=== PATIENT | female | born 1975 | race Caucasian/White ===

== ENCOUNTER 2017-12-23 16:48 | Emergency (ER) | payer BC, OTHER ==
[2017-12-23 17:46] VITALS: BP 155/87
--- NOTE | 2017-12-23 18:18 | UC ---
Lower Extremity/Ankle HPI - HPI Summary HPI Summary: Patient urgent care with chief complaint of left lateral foot pain after tripping and falling in the parking lot at the supermarket yesterday. Patient is able to weight-bear with pain - History of Current Complaint Chief Complaint: UCLowerExtremity Stated Complaint: SP FALL/LT FOOT INJURY Time Seen by Provider: 12/23/17 17:49 Hx Obtained From: Patient Hx Last Menstrual Period: 11/24/17 ?: No Onset/Duration: Sudden Onset Pain Intensity: 8 Pain Scale Used: 0-10 Numeric Aggravating Factor(s): Standing, Ambulation Alleviating Factor(s): Rest, Elevation Able to Bear Weight: Yes - Allergies/Home Medications Allergies/Adverse Reactions: Allergies Allergy/AdvReac Type Severity Reaction Status Date / Time No Known Allergies Allergy Verified 12/23/17 17:44 Home Medications: Home Medications Acetaminophen [Tylophen] 1,000 mg PO Q8H 12/23/17 [History Confirmed 12/23/17] Metformin ER (NF) 1,000 mg PO BID 12/23/17 [History Confirmed 12/23/17] Omeprazole CAP* [Prilosec CAP* 20 MG] 20 mg PO DAILY 12/23/17 [History Confirmed 12/23/17] Venlafaxine CAP (NF) [Effexor CAP (NF)] 75 mg PO DAILY 12/23/17 [History Confirmed 12/23/17] PMH/Surg Hx/FS Hx/Imm Hx Previously Healthy: No Endocrine History: Diabetes GI/ History: Gastroesophageal Reflux Psychological History: Depression - Surgical History Surgical History: Yes Surgery Procedure, Year, and Place: X2 - Family History Known Family History: Positive: None - Social History Occupation: Employed Full-time Lives: With Family Alcohol Use: Occasionally Substance Use Type: None Smoking Status (MU): Never Smoked Tobacco Review of Systems Constitutional: Negative Skin: Negative Eyes: Negative ENT: Negative Respiratory: Negative Cardiovascular: Negative Gastrointestinal: Negative Genitourinary: Negative Motor: Negative Neurovascular: Negative Musculoskeletal: Arthralgia - Left fourth and fifth metatarsal discomfort with palpation Neurological: Negative Psychological: Negative Is Patient Immunocompromised?: No All Other Systems Reviewed And Are Negative: Yes Physical Exam Triage Information Reviewed: Yes Appearance: Well-Appearing, Pain Distress - mild, Obese Vital Signs: Initial Vital Signs Temp 98.2 F 12/23/17 17:40 Pulse 98 12/23/17 17:40 Resp 16 12/23/17 17:40 BP 155/87 12/23/17 17:40 Pulse Ox 98 12/23/17 17:40 Vital Signs Reviewed: Yes Eye Exam: Normal Eyes: Positive: Conjunctiva Clear ENT Exam: Normal ENT: Positive: Normal ENT inspection, Hearing grossly normal. Negative: Trismus , Muffled voice, Hoarse voice, Dental tenderness Dental Exam: Normal Neck exam: Normal Neck: Positive: Supple, Nontender Respiratory Exam: Normal Respiratory: Positive: Chest non-tender, No respiratory distress, No accessory muscle use Cardiovascular Exam: Normal Cardiovascular: Positive: RRR, Pulses Normal, Brisk Capillary Refill Musculoskeletal Exam: Normal Neurological Exam: Normal Neurological: Positive: Alert, Muscle Tone Normal Psychological Exam: Normal Skin Exam: Normal Diagnostics - Radiology No standard instances Xray Interpretation: No Acute Changes - Patient Name: CORAL WYLIE Medical Record# : [id number] Ordering Physician: Sheela Owens [employer] Acct.#: [id number] : 1975 Age: 42 Sex: F Location: [facility]ARE [facility] Exam Date: 12/23/171752 ADM Status: REG ER Order Information: FOOT LEFT 3+ VWS Accession Number: [id number] CPT: 54079 INDICATION: Fifth metatarsal pain COMPARISON: None TECHNIQUE: AP, lateral, and oblique views were obtained. FINDINGS: There is no acute fracture. There are mild irregularities about the dorsal aspect of the tarsal navicular which are likely related to prior degenerative and/or post medic change. There are small ossific densities about the cuboid which are rounded and corticated. There is a moderate-sized plantar calcaneal spur. IMPRESSION: NO ACUTE FRACTURE. _ <Electronically signed by Adithya Mcfarland MD in OV> 12/23/171814 Dictated By: Adithya Mcfarland MD Dictated Date/Time: 12/23/171814 Transcribed Date/Time : 12/23/171813 Copy to: CC:Sheela Owens [employer]; David Mckeon MD; Faith Branch MD Imaging - [facility] Imaging - [facility] Imaging - [facility] [address] [address] ph [phone] ph [phone] ph ([phone]) 1 of 1 Radiology Interpretation Completed By: ED Physician, Radiologist Lower Extremity Course/Dx - Course Course Of Treatment: Cam boot left foot. Weightbearing as tolerated Tylenol or ibuprofen for pain rest ice and elevation follow with PCP or orthopedic M.D. as needed - Differential Dx/Diagnosis Provider Diagnoses: Left foot sprain, elevated blood pressure without diagnosis of hypertension Discharge - Sign-Out/Discharge Documenting (check all that apply): Discharge/Admit/Transfer - Discharge Plan Condition: Stable Disposition: HOME Patient Education Materials: Foot Sprain (ED), Hypertension (ED), R.I.C.E. Treatment (ED) Referrals: Thang Duvall MD [Medical Doctor] - (if needed should foot pain continue for > 1 week) Faith Branch MD [Primary Care Provider] - 2 Weeks (for BP recheck) - Billing Disposition and Condition Condition: STABLE Disposition: Home
== END 2017-12-23 18:42 | disposition home or self-care (01) ==
LOC: UCCORT 16:48
DX: S93.602A Unspecified sprain of left foot, initial encounter (principal); W01.0XXA Fall on same level from slipping, tripping and stumbling without subsequent striking against object, initial encounter; Y93.01 Activity, walking, marching and hiking; Y92.481 Parking lot as the place of occurrence of the external cause; E11.9 Type 2 diabetes mellitus without complications; Z79.84 Long term (current) use of oral hypoglycemic drugs; K21.9 Gastro-esophageal reflux disease without esophagitis; F32.9 Major depressive disorder, single episode, unspecified
CPT/HCPCS: 99202; G0463

== ENCOUNTER 2019-01-11 11:54 | Inpatient (IN) | payer OTHER ==
[~2019-01-11 11:54] MED LIST: Buffered Lidocaine 1% SYRIN* 1 ML/SYRINGE INTRADERM ONE; Lactated Ringers 1000 ML Bag* 1,000 ML IV SCH
[2019-01-11] MEDS ORDERED: ceFAZolin 1 GM ADVAN(*) 1 GM ADDV.VIAL IVPB ONE (12:24)
[2019-01-11] MEDS ORDERED: Heparin VIAL(*) 5000 UNITS/ML VIAL (FIVE THOUSAND) ONE (12:24)
[2019-01-11] MEDS ORDERED: Buffered Lidocaine 1% SYRIN* 1 ML/SYRINGE INTRADERM ONE (12:24)
[2019-01-11] MEDS ORDERED: ceFAZolin 2 GM in NS PREMIX(*) 2 GM/100 ML BAG IVPB ONE (12:24)
[2019-01-11] MEDS ORDERED: Bupivacaine 0.25% EPI 200,000* 30 ML SDV ONE (13:08)
[2019-01-11] MEDS ORDERED: fentaNYL* 50 MCG/ML 2 ML VIAL (100 MCG VIAL) ONE ×2 (13:33→15:44)
[2019-01-11] MEDS ORDERED: Midazolam* 1 MG/ML 5 ML VIAL (5 MG) ONE (13:33)
[2019-01-11] MEDS ORDERED: Rocuronium* 10 MG/ML VIAL ONE ×2 (13:33→14:43)
[2019-01-11] MEDS ORDERED: Propofol* 10 MG/ML 20 ML BTL ONE (13:33)
[2019-01-11] MEDS ORDERED: Scopolamine 1.5 mg* PATCH ONE (13:33)
[2019-01-11] MEDS ORDERED: Dexamethasone IV* 4 MG/ML 1 ML (4 MG) ONE (14:18)
[2019-01-11] MEDS ORDERED: Ondansetron INJ* 2 MG/ML VIAL ONE (14:58)
[2019-01-11] MEDS ORDERED: Ketorolac INJ* 30 MG/ML 1 ML VIAL ONE (14:58)
[2019-01-11] MEDS: Ketorolac INJ* 30 MG/ML 1 ML VIAL IV PRN ×2 (15:03→21:28)
[2019-01-11] MEDS ORDERED: Glycopyrrolate IV* 0.2 MG/ML 1 ML VIAL ONE ×2 (15:10→15:16)
[2019-01-11] MEDS ORDERED: Neostigmine Methylsulfate* 3 MG/3 ML SYRINGE ONE ×2 (15:10→15:17)
[2019-01-11] MEDS ORDERED: Ondansetron INJ* 2 MG/ML VIAL IV PRN ×2 (15:27→15:44)
[2019-01-11] MEDS ORDERED: HYDROmorphone INJ1* 1 MG/ML SYRINGE IV SLOW PU PRN (15:27)
[2019-01-11] MEDS ORDERED: HYDROmorphone INJ* 0.5 MG/0.5 ML SYRINGE IV SLOW PU PRN (15:33)
[2019-01-11] MEDS ORDERED: Dextrose 50% VIAL 50 ml IV PUSH PRN (15:34)
[2019-01-11] MEDS ORDERED: DiMENhydriNATE IV* 50 MG/ML VIAL IV PUSH PRN (15:44)
[2019-01-11] MEDS ORDERED: Naloxone* 0.4 MG/ML 1 ML VIAL IV PRN (15:44)
[2019-01-11] MEDS: fentaNYL* 50 MCG/ML 2 ML VIAL (100 MCG VIAL) IV PRN ×4 (15:46→16:07)
--- NOTE | 2019-01-11 15:57 | OP ---
Operative Report - Blank - Operative Report Date of Operation: 01/11/19 Note: Brief Operative Note Preop Dx: morbid obesity Postop Dx: same Procedure: Laparoscopic sleeve gastrectomy Anesthesia: GET Surgeon: Flakita Financial Aid Manager: ASYA Cooper; FRANCES Ball Fluids: 1700 ml RL EBL: < 50 ml Specimen: portion stomach Drains: none Findings: dictated
[2019-01-11] MEDS ORDERED: HYDROmorphone INJ1* 1 MG/ML SYRINGE ONE (16:09)
[2019-01-11] MEDS: HYDROmorphone INJ1* 1 MG/ML SYRINGE IV PRN ×5 (16:11→16:52)
[2019-01-11] MEDS: Insulin LISPRO* 1 UNITS UNIT SUBCUT SCH ×2 (18:36→23:39)
--- NOTE | 2019-01-11 20:10 | OP ---
CC: Maryellen Nassar MD; [facility]; Faith Branch MD * DATE OF OPERATION: 01/11/19 - ROOM #352 DATE OF : [birth year] SURGEON: David Boggs MD COAL YARD SUPERVISOR: ASYA Ugarte ANESTHESIOLOGIST: Eugene Connor MD ANESTHESIA: General endotracheal. PRE-OP DIAGNOSIS: Clinically severe obesity. POST-OP DIAGNOSIS: Clinically severe obesity. OPERATIVE PROCEDURE: Laparoscopic sleeve gastrectomy. ESTIMATED BLOOD LOSS: Less than 50 mL. IV FLUIDS: Crystalloids. SPECIMENS: Portion of stomach. DRAINS: None. COMPLICATIONS: None. COUNTS: The instrument, needle, and sponge counts were correct. DESCRIPTION OF PROCEDURE: The patient was brought to the operating room and placed on the table supine. Sequential compression devices were placed on both lower extremities. General anesthesia was administered. The abdomen was prepped and draped in the usual sterile fashion and time-out was performed. Local anesthetic was infiltrated into the skin and soft tissue prior to making each incision. Entry into the abdomen was through a left upper quadrant incision accommodating a 5 mm optical trocar. After accessing the peritoneal cavity, carbon dioxide was insufflated to a pressure of 15 mmHg. Under direct visualization, a 12 mm trocar was placed in the right upper quadrant and also in the supraumbilical midline. A 5 mm trocar was placed in the left upper quadrant laterally. Initially inspection was performed in the pelvis. There was a mass of omentum adherent in the midline of the pelvis. There were windows allowing me to see the uterus and the left and right ovary. The right ovary did appear to be enlarged. No other abnormalities were noted. A Cassandra liver retractor was placed percutaneously in the subxiphoid position and used to elevate the left lobe of the liver. Gastric anatomy appeared normal. Immobilization of the stomach was performed starting at 6 cm proximal to the pylorus. The LigaSure was used to skeletonize greater curvature. There were no adhesions in the lesser sac. Next, the sleeve gastrectomy was performed over the 40-Bengali bougie using combination of endoscopic staplers. First firing was a 60 mm black reinforced cartridge on the antrum. The right upper quadrant trocar was upsized to a 15 mm trocar to accommodate this. Additional firings of the Endo-JAMES stapler with purple cartridges with reinforcement were performed with completion of the sleeve gastrectomy and the specimen was retrieved through the right upper quadrant. This was subsequently closed with 0 Vicryl using the Endo Close for the muscle and fascia. The ports were removed under direct visualization and carbon dioxide was released. The skin incisions were closed with 4-0 Monocryl in subcuticular fashion. Steri- Strips were applied. The patient tolerated the procedure well , was extubated and transferred to recovery in stable condition. [id number]/[facility] #: [id number] [facility]PITALLucas
[2019-01-11] MEDS: Famotidine IV* 10 MG/ML 2 ML (20 mg) IV SLOW PU SCH (21:28)
[2019-01-11] MEDS: Heparin VIAL(*) 5000 UNITS/ML VIAL (FIVE THOUSAND) SUBCUT SCH (21:30)
[2019-01-11] MEDS: HYDROmorphone INJ1* 1 MG/ML SYRINGE IV SLOW PU PRN (23:39)
[2019-01-11] MEDS: Lactated Ringers 1000 ML Bag* 1,000 ML IV SCH (23:44)
[2019-01-12] MEDS: HYDROmorphone INJ1* 1 MG/ML SYRINGE IV SLOW PU PRN ×2 (03:17→06:18)
[2019-01-12] MEDS: Lactated Ringers 1000 ML Bag* 1,000 ML IV SCH ×2 (05:54→13:21)
[2019-01-12] MEDS: Heparin VIAL(*) 5000 UNITS/ML VIAL (FIVE THOUSAND) SUBCUT SCH ×2 (05:56→14:15)
[2019-01-12] MEDS: Insulin LISPRO* 1 UNITS UNIT SUBCUT SCH ×4 (06:07→23:59)
[2019-01-12] MEDS: Ketorolac INJ* 30 MG/ML 1 ML VIAL IV PRN ×2 (08:13→15:52)
[2019-01-12] MEDS: Famotidine IV* 10 MG/ML 2 ML (20 mg) IV SLOW PU SCH ×2 (08:13→20:48)
--- NOTE | 2019-01-12 10:46 | PN ---
Progress Note - Progress Note Date of Service: 01/12/19 Note: S: This is a 43 y/o female s/p laparoscopic sleeve gastrectomy yesterday, [id number]. Patient was in significant pain yesterday post operatively into the night, but pain was and is currently controlled with 1mg of Dilaudid. Patient had some nausea post operatively, but is currently controlled with a scopolamine patch. On bariatric clear liquid diet. Tolerated first 3 oz in the last hour, although patient states she feels full. Notes some burping, especially after sipping clear liquids. Patient has been ambulating without difficulty, as well as urinating without difficulty. No bowel movement. Patient denies any current nausea or vomiting, epigastric pain, chest pain, shortness of breath, fevers, or chills. Active medications are as follows: Dextrose (Dextrose 50% Vial 50 Ml*) 25 ml IV PUSH .FOR FS < 60 - SS PRN PRN Reason: FS < 60 Famotidine (Pepcid Iv*) 20 mg IV SLOW PU BID [facility] Last Admin: 01/12/19 08:13 Dose: 20 mg Heparin Sodium (Porcine) (Heparin Vial(*)) 5,000 units SUBCUT Q8HR [facility] Last Admin: 01/12/19 05:56 Dose: 5,000 units Hydromorphone HCl (Dilaudid Inj1s*) 0.5 mg IV SLOW PU Q3H PRN PRN Reason: PAIN - SEVERE Last Admin: 01/11/19 20:15 Dose: 0.5 mg Hydromorphone HCl (Dilaudid Inj1s*) 1 mg IV SLOW PU Q3H PRN PRN Reason: SEVERE PAIN Last Admin: 01/12/19 06:18 Dose: 1 mg Potassium Chloride/Dextrose (D5w 1/2 Ns Kcl 20 Meq 1000 Ml*) 1,000 mls @ 125 mls/hr IV PER RATE [facility] Lactated Ringer's (Lactated Ringers 1000 Ml Bag*) 1,000 mls @ 150 mls/hr IV PER RATE [facility] Stop: 01/12/19 15:30 Last Admin: 01/12/19 05:54 Dose: 150 mls/hr Insulin Human Lispro (Humalog*) 0 units SUBCUT Q6HR [facility]; Protocol Last Admin: 01/12/19 06:07 Dose: Not Given Ketorolac Tromethamine (Toradol Inj*) 30 mg IV Q6H PRN PRN Reason: PAIN Stop: 01/13/19 15:31 Last Admin: 01/12/19 08:13 Dose: 30 mg Ondansetron HCl (Zofran Inj*) 4 mg IV Q6H PRN PRN Reason: NAUSEA/VOMITING Pharmacy Profile Note (Scopolamine Patch Remove*) 1 note PATCH OFF Q72H ONE Stop: 01/14/19 15:45 O: Vital Signs Temp 98.3 F 01/12/19 08:03 Pulse 82 01/12/19 08:03 Resp 16 01/12/19 08:03 BP 135/69 01/12/19 08:03 Pulse Ox 95 01/12/19 08:03 Intake & Output 01/11/19 01/12/19 01/12/19 18:59 06:59 18:59 Intake Total 1999 2037 Output Total 1000 1999 Balance 1000 38 Weight 266 lb Intake: IV Fluids 1999 1887 LR 1999 1887 Oral 150 Output: Urine 999 1999 Other: # Bowel Movements 0 Estimated Blood Loss MINIMAL Comment General: patient is sitting comfortably in bed in no acute distress. A&O x 3. Cardio: Regular rate and rhythm. Respiratory: lungs are clear to auscultation throughout bilaterally Abdomen/surgical site: dressings are in place without significant drainage or purulent drainage. Bowel sounds are normoactive in the upper R & L quadrants, but hypoactive in the lower R & L quadrants. Tenderness to palpation in the epigastric region. A: POD #1 s/p laparoscopic sleeve gastrectomy P: continue bariatric clear liquid diet as tolerated and document intake and output continue regular ambulation continue pain management
[2019-01-12] MEDS ORDERED: Acetaminophen ADULT LIQ* 650 MG/20.3 ML UDC PO PRN (11:15)
[2019-01-12] MEDS: HYDROcodone/ACET. 7.5/325 LIQ* 15 ML UDC PO PRN ×2 (11:25→20:46)
[2019-01-12] MEDS: D5W 1/2 NS KCl 20 Meq 1000 ML* 1,000 ML IV SCH ×2 (15:52→23:58)
[2019-01-13] MEDS: Insulin LISPRO* 1 UNITS UNIT SUBCUT SCH ×2 (06:13→12:33)
[2019-01-13] MEDS: Heparin VIAL(*) 5000 UNITS/ML VIAL (FIVE THOUSAND) SUBCUT SCH ×3 (06:14→12:36)
[2019-01-13] MEDS: D5W 1/2 NS KCl 20 Meq 1000 ML* 1,000 ML IV SCH (08:07)
--- NOTE | 2019-01-13 09:00 | PN ---
Progress Note - Progress Note Date of Service: 01/13/19 Note: S: This is a 43 y/o female s/p laparoscopic gastrectomy on [id number]. Patient is feeling "off," but denies any clinical symptoms of infection. States she feels this way because she could only tolerate at most 3oz of clear liquids per hour while awake yesterday. Does not crave a certain liquid, nothing tastes good. Feels full at 3oz of clear liquid per hour. Some nausea this morning but no vomiting. Pain well controlled and patient states has not had pain medication since last night and had no pain upon waking this morning. No bowel movement, but patient is passing gas. Urinating frequently resulting clear/ yellow urine. Some burping and hiccuping. Ambulating well. No chest pain, shortness of breath, fever, or chills. Active medications are as follows: Acetaminophen (Tylenol Adult Liq*) 650 mg PO Q4H PRN PRN Reason: mild pain Hydrocodone Bitart/Acetaminophen (Nortab 7.5/325 Liq*) 15 ml PO Q6H PRN PRN Reason: moderate pain Last Admin: 01/12/19 20:46 Dose: 15 ml Dextrose (Dextrose 50% Vial 50 Ml*) 25 ml IV PUSH .FOR FS < 60 - SS PRN PRN Reason: FS < 60 Famotidine (Pepcid Iv*) 20 mg IV SLOW PU BID [facility] Last Admin: 01/12/19 20:48 Dose: 20 mg Heparin Sodium (Porcine) (Heparin Vial(*)) 5,000 units SUBCUT Q8HR [facility] Last Admin: 01/13/19 06:14 Dose: 5,000 units Hydromorphone HCl (Dilaudid Inj1s*) 0.5 mg IV SLOW PU Q3H PRN PRN Reason: PAIN - SEVERE Last Admin: 01/11/19 20:15 Dose: 0.5 mg Hydromorphone HCl (Dilaudid Inj1s*) 1 mg IV SLOW PU Q3H PRN PRN Reason: SEVERE PAIN Last Admin: 01/12/19 06:18 Dose: 1 mg Potassium Chloride/Dextrose (D5w 1/2 Ns Kcl 20 Meq 1000 Ml*) 1,000 mls @ 125 mls/hr IV PER RATE [facility] Last Admin: 01/13/19 08:07 Dose: 125 mls/hr Insulin Human Lispro (Humalog*) 0 units SUBCUT Q6HR [facility]; Protocol Last Admin: 01/13/19 06:13 Dose: 2 units Ketorolac Tromethamine (Toradol Inj*) 30 mg IV Q6H PRN PRN Reason: PAIN Stop: 01/13/19 15:31 Last Admin: 01/12/19 15:52 Dose: 30 mg Ondansetron HCl (Zofran Inj*) 4 mg IV Q6H PRN PRN Reason: NAUSEA/VOMITING Pharmacy Profile Note (Scopolamine Patch Remove*) 1 note PATCH OFF Q72H ONE Stop: 01/14/19 15:45 O: Vital Signs Temp 98.1 F 01/13/19 08:03 Pulse 77 01/13/19 08:03 Resp 16 01/13/19 08:03 BP 156/67 01/13/19 08:03 Pulse Ox 98 01/13/19 08:03 Intake & Output 01/12/19 01/13/19 01/13/19 18:59 06:59 18:59 Intake Total 2034 1370 Output Total 1200 2250 600 Balance 834 -880 -600 Intake: IV Fluids 1304 980 D5W 1/2 NS 20 meq KCL 980 LR 1304 Oral 730 390 Output: Urine 1200 2250 600 Other: # Bowel Movements 0 General: patient comfortable supine in bed. No acute distress. A&O x 3. Cardio: Regular rate and rhythm. Heart sounds distant. Respiratory: Lungs clear to auscultation throughout bilaterally. No wheezes or rhonchi. Abdomen/surgical site: dressings in place without bloody or purulent drainage. Bowel sounds normoactive upper quadrants, hypoactive lower quadrants. No tenderness to palpation of the abdomen. A: POD #2 s/p laparoscopic sleeve gastrectomy P: patient discussed with Dr. Deutsch and we will wait until this afternoon to see if her clinical picture improves throughout the day by drinking more clear liquids per hour, and then consider discharge later today. Patient informed of this decision and understands. continue increase of clear liquids per hour as tolerated continue regular ambulation continue pain management
[2019-01-13] MEDS: Famotidine IV* 10 MG/ML 2 ML (20 mg) IV SLOW PU SCH (10:11)
[2019-01-13 12:11] VITALS: BP 148/69
--- NOTE | 2019-01-13 20:15 | DS ---
CC: Dr. Faith Branch; [facility] * DISCHARGE SUMMARY: DATE OF ADMISSION: 01/11/19 DATE OF DISCHARGE: 01/13/19 ATTENDING SURGEON: Dr. David Boggs.* (DICTATED BY ASYA AGUIRRE) HOSPITAL COURSE: Please refer to admission history and physical and operative note for details. The patient was taken to the operating room on 01/11/19, at which time she underwent laparoscopic sleeve gastrectomy. She was found at the time of surgery to have some omental adhesions in the lower midline. These were taken down partially, but not completely. The uterus and ovaries were visualized and still photos taken for review by her requirements analyst. There was no obvious pathology. Surgery itself was uneventful and the patient has progressed in terms of pain and nausea control and intake of bariatric clear liquids. At the time of discharge, she was tolerating 4 ounces per hour consistently. She was seen in the morning by Dr. Boggs and in the early afternoon again by myself. See separate progress note from that day. PHYSICAL EXAMINATION: At the time of discharge includes temperature 98.4, blood pressure 148/69, pulse 76, respirations 16, room air saturation 98%. Laparoscopic incision sites healing well without evidence of infection. Steri- Strips in place. IMPRESSION: Status post laparoscopic sleeve gastrectomy, doing well. PLAN: Home today. Instructions regarding wound care, diet, and activity are reviewed. The patient has an appointment for followup next week at [facility] and also has prescription for hydrocodone elixir p.r.n. for pain. She will resume her usual venlafaxine. DISCHARGE CONDITION: She is discharged to home in good condition. ASYA AGUIRRE [id number]/[facility] #: [id number] [facility]IT[facility]
[2019-01-14] MEDS ORDERED: Scopolamine PATCH Remove* 1 NOTE MISC PATCH OFF ONE (15:44)
== END 2019-01-13 13:30 | disposition home or self-care (01) | DRG 403 ==
LOC: AA 11:54 → SSU 17:27
PROVIDERS: ADMIT Surgery; ATTEND Surgery
PROC: 0DB64Z3 Excision of Stomach, Percutaneous Endoscopic Approach, Vertical (ICD-10-PCS; principal; 2019-01-11 14:00)
DX: E66.01 Morbid (severe) obesity due to excess calories (principal); Z68.42 Body mass index [BMI] 45.0-49.9, adult; F41.9 Anxiety disorder, unspecified; G47.33 Obstructive sleep apnea (adult) (pediatric); K21.9 Gastro-esophageal reflux disease without esophagitis; E11.9 Type 2 diabetes mellitus without complications; K76.0 Fatty (change of) liver, not elsewhere classified; N83.209 Unspecified ovarian cyst, unspecified side; R11.0 Nausea; E28.2 Polycystic ovarian syndrome; Z88.8 Allergy status to other drugs, medicaments and biological substances; Z83.3 Family history of diabetes mellitus; Z83.49 Family history of other endocrine, nutritional and metabolic diseases; Z82.49 Family history of ischemic heart disease and other diseases of the circulatory system
CPT/HCPCS: 43775; 88307; A9270-GY; J0690; J1100; J1170; J1644; J1885; J2250; J2405; J2704; J2710; J3010